=== PATIENT | male | born 1970 | race African-American/Black ===

== ENCOUNTER 2020-03-14 20:03 | Emergency (ER) | payer OTHER ==
[~2020-03-14] VITALS: Ht 167.6 cm; Wt 71.2 kg
[2020-03-14 20:43] LABS: URINE BILIRUBIN 1+ (Negative); URINE BLOOD 3+ (Negative); URINE GLUCOSE-RANDOM* 3+ (Negative); URINE KETONES NEGATIVE (Negative); URINE LEUKOCYTES-REFLEX 2+ (Negative); URINE NITRITE-REFLEX POSITIVE (Negative); URINE PROTEIN (DIPSTICK) 2+ (Negative); URINE UROBILINOGEN >= 8.0 E.U./dl (0.2-1.0)
[2020-03-14 20:44] LABS: ICTOTEST (BILI CONFIRMATORY) Positive (Negative)
[2020-03-14 20:45] LABS: URINE CLARITY CLOUDY; URINE COLOR AMBER
[2020-03-14 20:49] LABS: BACTERIA-REFLEX >30 Many /HPF (None Seen); CRYSTALS None Seen /LPF (None Seen); SQUAMOUS 0-3 Few /LPF (0-3); URINE WBC-REFLEX >25 Many /HPF (0-5)
[2020-03-14 20:50] LABS: HYALINE CASTS 0-3 Few /LPF (None Seen)
[2020-03-14 20:55] LABS: BASOPHILS 0.5 % (0.0-2.0); EOSINOPHILS 5.4 % (0.0-3.0); HEMATOCRIT 34.7 % (42.0-52.0); HEMOGLOBIN 11.2 gm/dL (14.0-18.0); LYMPHOCYTES 2.7 % (24.0-44.0); MCH 26.9 pg (26.0-34.0); MCHC 32.3 g/dL (28.0-37.0); MCV 83.3 fL (80.0-100.0); MONOCYTES 9.3 % (1.0-8.0); PLATELET COUNT 285 thou/uL (150-400); POLYS 82.1 % (36.0-66.0); RBC 4.17 mil/uL (4.50-6.00); RDW 14.7 % (10.5-14.5)
[2020-03-14 21:03] LABS: ANION GAP 11 mmol/L (7-16); BUN 24 mg/dL (7-18); CHLORIDE 96 mmol/L (98-107); CO2 28 mmol/L (21-32); CREATININE 1.5 mg/dL (0.7-1.3); GLUCOSE 345 mg/dL (74-106); POTASSIUM 3.6 mmol/L (3.5-5.1); SODIUM 135 mmol/L (136-145)
[2020-03-14 21:12] LABS: MAGNESIUM 1.9 mg/dL (1.8-2.4); TROPONIN-I <0.06 ng/mL (<0.06)
[2020-03-14] MEDS ORDERED: NICORETTE2 MG PO (22:08)
[2020-03-14] MEDS ORDERED: CYCLOBENZAPRINE10 MG PO (22:08)
[2020-03-14] MEDS ORDERED: NAPROSYN500 MG PO (22:08)
[2020-03-14] MEDS ORDERED: ATORVASTATIN CA20 MG PO (22:09)
[2020-03-14] MEDS ORDERED: METFORMIN HCL1000 MG PO (22:09)
[2020-03-14] MEDS ORDERED: NICOTINE TRANSD21 M1 (22:09)
[2020-03-14] MEDS ORDERED: LANTUS SOL100 UNIT/1 SUBQ (22:09)
[2020-03-14] MEDS ORDERED: KEFLEX500 M1 PO (22:19)
[2020-03-14 22:36] VITALS: BP 125/60
--- NOTE | 2020-03-15 07:39 | EKG ---
[facility] [place] [address] ELECTROCARDIOGRAM REPORT Name: SARAH BETH BURNETTE Room #: DEP [facility].#: [id number] Admission: 03/14/20 Attend Phys: Discharge: 03/14/20 Date of : 68 Report #: [id number] THIS REPORT FOR: cc: [facility] - No family physician/PCP FAM - No family physician/PCP Geoffrey Read MD [facility] THIS REPORT FOR: //name// [facility] ED Test Date: 2020-03-14 Test Time: 20:42:47 Pat Name: SARAH BETH BURNETTE Department: Room: Gender: Chemical Dependency Nurse: : 1970 Requested By: Parrish Donis Order Number: [id number] MD: Geoffrey Read Measurements Intervals [place] Rate: 109 P: 38 VT: 173 QRS: -23 QRSD: 89 T: 126 QT: 348 QTc: 469 Interpretive Statements Sinus tachycardia Probable left atrial enlargement Probable LVH with secondary repol abnrm Anterior Q waves, possibly due to LVH No previous ECG available for comparison Electronically Signed On 03-15-2020 7:39:20 CDT by Geoffrey Read [email or web address] <ELECTRONICALLY SIGNED> By: Geoffrey Read MD, FACC 03/15/20 0739 41 41 Geoffrey Read MD, [facility] /EPI
== END 2020-03-14 22:36 | disposition home or self-care (01) ==
LOC: ER 20:03
PROVIDERS: Emergency Medicine
DX: R07.89 Other chest pain (principal); Z20.828 Contact with and (suspected) exposure to other viral communicable diseases; M62.830 Muscle spasm of back; R05 Cough; N39.0 Urinary tract infection, site not specified; Z79.899 Other long term (current) drug therapy; Z79.4 Long term (current) use of insulin